=== PATIENT | female | born 1935 | race Caucasian/White ===

== ENCOUNTER 2017-09-25 15:16 | Inpatient (IN) | payer MEDICARE, OTHER ==
[~2017-09-25] VITALS: Ht 154.9 cm; Wt 86.8 kg
[2018-05-22] VITALS (12 sets, daily range): BP systolic 119–154; BP diastolic 58–77; PULSE 59–77; TEMP 97–98.6
[2018-05-22] MEDS ORDERED: K-TAB10 PO (07:19)
[2018-05-22] MEDS ORDERED: LASIX 40MG TABL40 MG PO (07:19)
[2018-05-22] MEDS ORDERED: LIPITOR 80MG80 MG PO (07:19)
[2018-05-22] MEDS ORDERED: MYRBETR50MG PO (07:19)
[2018-05-22] MEDS ORDERED: COREG12.5 MG PO (07:20)
[2018-05-22] MEDS ORDERED: CENTANY2% TOP (07:22)
[2018-05-23 00:50] VITALS: BP 125/55; PULSE 72; TEMP 98.6
[2018-05-23 06:07] VITALS: BP 146/50; PULSE 64; TEMP 97.4
[2018-05-23 07:28] VITALS: BP 132/56; PULSE 61; TEMP 97.5
[2018-05-23 11:34] VITALS: BP 144/62; PULSE 62; TEMP 97.5
[2018-05-23 15:40] VITALS: BP 134/47; PULSE 63; TEMP 97.5
[2018-05-24 01:35] VITALS: BP 136/50; PULSE 67; TEMP 98
[2018-05-24 05:01] VITALS: BP 132/46; PULSE 65; TEMP 98.6
[2018-05-24 06:58] VITALS: BP 137/59; PULSE 63; TEMP 98.2
[2018-05-24 12:49] VITALS: BP 126/91; PULSE 92; TEMP 98.2
[2018-05-24 15:48] VITALS: BP 137/55; PULSE 77; TEMP 98.6
[2018-05-24 20:57] VITALS: BP 137/52; PULSE 72; TEMP 98.9
[2018-05-25 00:31] VITALS: BP 137/75; PULSE 80; TEMP 98.2
[2018-05-25 04:10] VITALS: BP 96/41; PULSE 75; TEMP 98.2
[2018-05-25 04:39] VITALS: BP 102/43
[2018-05-25 06:54] VITALS: BP 102/43; PULSE 75; TEMP 98.2
[2018-05-25 08:20] VITALS: BP 123/53; PULSE 69; TEMP 98.5
== END 2018-05-25 10:15 | disposition swing bed (61) | DRG 470 ==
LOC: JCC 11-15 10:15
PROVIDERS: Orthopaedic Surgery
PROC: 0SRD0J9 Replacement of Left Knee Joint with Synthetic Substitute, Cemented, Open Approach (ICD-10-PCS; principal; 2018-05-22 10:15)
DX: M17.12 Unilateral primary osteoarthritis, left knee (principal); E78.5 Hyperlipidemia, unspecified; I25.10 Atherosclerotic heart disease of native coronary artery without angina pectoris; Z95.1 Presence of aortocoronary bypass graft; I10 Essential (primary) hypertension; Z85.828 Personal history of other malignant neoplasm of skin; Z95.5 Presence of coronary angioplasty implant and graft
CPT/HCPCS: A4314; A9284; C1713; C1776; J0690; J1100; J1170; J2250; J2405; J2704; J3010; J7120

== ENCOUNTER → 2018-05-09 | Outpatient (CLI) | payer MEDICARE, OTHER ==
[2018-05-09 13:01] LABS: HIV 1/2 Antibodies Non-Reactive; HIV-1p24 Antigen Non-Reactive
== END ==
LOC: COL.LAB 11:52
PROVIDERS: Orthopaedic Surgery
DX: Z01.812 Encounter for preprocedural laboratory examination (principal); M17.12 Unilateral primary osteoarthritis, left knee